=== PATIENT | male | born 1940 | race Caucasian/White ===

== ENCOUNTER 2017-02-16 08:46 | Day surgery (SDC) | payer MEDICARE ==
--- NOTE | 2017-02-14 17:59 | HP ---
PROCEDURE DATE: 02/16/17 HISTORY OF PRESENT ILLNESS: The patient is a 76 y/o with upper esophagus swallowing problems, history of throat cancer in the past. Had some radiation therapy 5 years ago. Saw ENT surgeon, Dr. Mckeon, who thought was negative for any obvious cancer recurrence, but given his dysphagia of upper esophagus, he is interested in upper endoscopy, possible dilatation pending operative findings. PAST MEDICAL HISTORY: Diabetes and some reflux. 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 CURRENT MEDICATIONS: Include omeprazole, finasteride, and Tamsulosin. ALLERGIES: SENSITIVE TO MORPHINE. FAMILY HISTORY: Negative with regards to this. SOCIAL HISTORY: No smoking or alcohol abuse. REVIEW OF SYSTEMS: 12 systems reviewed. No chest pain or palpitations. Other systems negative or noncontributory other than above and per admission assessment. PHYSICAL EXAMINATION: GENERAL: No acute distress. HEENT: Sclerae nonicteric. NECK: No JVD. CHEST: Equal excursion. Nonlabored breathing. CVS: Regular rate and rhythm. ABDOMEN: Soft, nontender, nondistended. EXTREMITIES: No significant edema. NEURO: Alert, moving extremities symmetrically. No gross motor deficits noted. It should be noted that patient had had a feeding tube by Dr. Morgan in the past. Apparently, had a perforation that Dr. Clark repaired in the past. IMPRESSION: DYSPHAGIA UPPER ESOPHAGUS. NEEDS EGD, POSSIBLE BIOPSY, POSSIBLE DILATATION PENDING OPERATIVE FINDINGS. Risks and benefits explained in detail, but not limited to, bleeding; infection; small risk of bowel injury or perforation possibly requiring open procedure; small risk of missed or nondiagnosis or incomplete exam possibly requiring barium swallow or other studies or procedures; possible risk of perforation possibly requiring open procedure; ongoing morbidity and mortality; possible referral to tertiary center. He understands and agrees to the planned procedure. Will proceed with EGD, possible biopsy, possible dilatation as an outpatient.
[~2017-02-16 08:46] MED LIST: DIPRIVAN 200 MG/20 ML IV ONE
[2017-02-16] MEDS ORDERED: Lactated Ringers 1,000 ML IV SCH (09:00)
[2017-02-16] MEDS ORDERED: Lactated Ringers 1,000 ML IV ONE ×2 (09:11→11:17)
[2017-02-16 12:24] VITALS: O2SAT 98
[2017-02-16 12:25] VITALS: BP 142/78; PULSE 50
--- NOTE | 2017-02-16 15:25 | OP ---
SURGERY DATE: 02/16/17 SURGERY TIME: 1040 PREOPERATIVE DIAGNOSIS: 1. HISTORY OF THROAT CANCER. 2. HISTORY OF DYSPHAGIA. POSTOPERATIVE DIAGNOSIS: 1. PROXIMAL ESOPHAGEAL NARROWING OR STRICTURE. 2. MILD GASTRITIS. 3. SMALL GASTRIC POLYPS VS FUNDAL GLAND POLYPS, PATH PENDING. 4. DISTAL ESOPHAGITIS, PATH PENDING FOR EVALUATION FOR OCLIN'S ESOPHAGUS. 5. SMALL HIATAL HERNIA. PROCEDURE: 1. Esophagogastroduodenoscopy with cold biopsy of the antrum to evaluate for Helicobacter pylori. 2. Cold biopsy gastric polyps. 3. Cold biopsy distal esophagus to evaluate for Colin's. 4. Esophageal balloon dilatation proximal esophageal narrowing (size 18 balloon dilator). SURGEON: Dr. Dioni Baldwin. ANESTHESIA: MAC. ESTIMATED BLOOD LOSS: Minimal. INDICATIONS: As noted above. Risks and benefits explained in detail, but not limited to. Consent was obtained. DESCRIPTION OF PROCEDURE AND FINDINGS: The patient was taken to the OR. MAC anesthesia was introduced. After official time-out, no disagreement in planned procedure. Bite block positioned. Video gastroscope passed in the oropharynx. There was a narrowed area in proximal esophagus, but the scope was able to be passed past this area. The distal esophagus was noted to have a short segment of Colin's appearing with some myelins of salmon-pink tissue. The gastroesophageal junction was about 39 cm. The scope passed into the stomach. He had a small hiatal hernia. Had some small gastric or fundal gland polyps. Cold biopsy was taken. There were no signs of any obvious other masses, ulcers, or any other mucosal lesions. He did have some mild gastritis. Cold biopsy was taken in the antrum to evaluate for Helicobacter pylori. The scope was passed in the duodenum to the junction of the 2nd and 3rd portion of the duodenum. The duodenum and duodenal bulb were grossly unremarkable. The scope was then pulled back. The biopsy site in the antrum and the gastric polyps had good hemostasis. On retroflex, he had a small hiatal hernia. The scope was straightened. The gastroesophageal junction was noted to be about 39 cm. There was a short segment, 2 cm or so, of distal gastroesophagitis vs Colin's with some myelins of salmon-pink material. Cold biopsy was taken in 4 quadrants around this a cm or so apart for path evaluation. No signs of any obvious masses. Scope pulled to the proximal esophagus. Had a definite esophageal narrowing or stricture. This was where he was having his symptoms. It was felt this would benefit from dilatation. There was no gross mass in this area. Scope was passed back down in the stomach. Balloon catheter carefully inserted in the stomach and then pulled back to the proximal esophageal narrowing. It was then inflated and dilated over 3 stages, the initial stage for 30-45 seconds, the 2nd stage 45 seconds, the final stage size 18 balloon dilator for 2 minutes. The balloon was released and removed. Balloon catheter removed. The scope was much more easily passed through this narrowed area. There was minimal abrasion. No signs of any full thickness issues or injury secondary to dilatation. The scope passed back down in the stomach. Slowly, carefully withdrawn. Good hemostasis was noted. The patient tolerated the procedure well. There were no immediate complications. Findings discussed with the family out in the waiting area.
== END 2017-02-16 12:25 | disposition home or self-care (01) ==
LOC: SDC 08:46
PROVIDERS: ATTEND Surgery
PROC: 0D718ZZ Dilation of Upper Esophagus, Via Natural or Artificial Opening Endoscopic (ICD-10-PCS; principal; 2017-02-16)
PROC: 0DB78ZX Excision of Stomach, Pylorus, Via Natural or Artificial Opening Endoscopic, Diagnostic (ICD-10-PCS; 2017-02-16)
PROC: 0DB38ZX Excision of Lower Esophagus, Via Natural or Artificial Opening Endoscopic, Diagnostic (ICD-10-PCS; 2017-02-16)
PROC: 0DB68ZX Excision of Stomach, Via Natural or Artificial Opening Endoscopic, Diagnostic (ICD-10-PCS; 2017-02-16)
DX: K22.2 Esophageal obstruction (principal); R13.10 Dysphagia, unspecified; K29.70 Gastritis, unspecified, without bleeding; K20.9 Esophagitis, unspecified; K44.9 Diaphragmatic hernia without obstruction or gangrene; E11.9 Type 2 diabetes mellitus without complications; K21.9 Gastro-esophageal reflux disease without esophagitis; Z79.899 Other long term (current) drug therapy
CPT/HCPCS: 82962; 87081; 43249; 43239; C1726; 00740; 36415; 88305; 99100; J2704

== ENCOUNTER 2018-01-18 10:31 | Day surgery (SDC) | payer MEDICARE ==
--- NOTE | 2018-01-18 09:42 | HP ---
PROCEDURE DATE: 01/18/18 HISTORY OF PRESENT ILLNESS: The patient is a 77 y/o with problems with swallowing. Is in need of upper endoscopy, possible biopsy, possible dilatation. PAST MEDICAL HISTORY: Has some chronic obstructive pulmonary disease. Has got some diabetes. Had history of throat cancer in the past and has had some hypothyroidism. Had some prostate issues in the past. CURRENT MEDICATIONS: Omeprazole, thyroid pill, and prostate pill. ALLERGIES: NKDA. PAST SURGICAL HISTORY: Denied prior abdominal surgery. FAMILY HISTORY: Negative with regards to this problem. SOCIAL HISTORY: Smoker, 2 packs per day. Denies alcohol abuse. REVIEW OF SYSTEMS: 12 systems reviewed per admission questionnaire pertinent for as noted above. PHYSICAL EXAMINATION: GENERAL: No acute distress. HEENT: Sclerae nonicteric. NECK: No JVD. CHEST: Equal excursion. Nonlabored breathing. CVS: Regular rate and rhythm. ABDOMEN: Soft. No peritoneal signs. EXTREMITIES: No significant edema. NEURO: Alert, moving extremities symmetrically. No gross motor deficits noted. IMPRESSION: 1. DYSPHAGIA. Needs upper endoscopy, possible biopsy, possible dilatation. Risks and benefits explained in detail, but not limited to, bleeding; infection; risk of bowel injury or perforation possibly requiring other procedure or open procedure; general risks of anesthesia, deep vein thrombosis, pulmonary embolism, or pneumonia; risk of aspiration; possibility if dilatation performed if it improved his situation, might need to be repeated down the road in the future. He also understands the possibility that it could be more of a neurologic or functional problem rather than an actual mechanical narrowing and dilatation may or may not help or may not be indicated. He understands risk of perforation, risk of aspiration, but not limited to. Will proceed with EGD with possible biopsy, possible dilatation as an outpatient.
[2018-01-18] MEDS ORDERED: Ketamine HCl 50 MG/ML IJ ONE (10:32)
[2018-01-18] MEDS ORDERED: DIPRIVAN 200 MG/20 ML IV ONE (10:32)
[2018-01-18] MEDS ORDERED: Lactated Ringers 1,000 ML IV SCH (11:00)
[2018-01-18 13:46] VITALS: O2SAT 98
[2018-01-18 14:32] VITALS: BP 161/90; PULSE 56
--- NOTE | 2018-01-19 11:03 | OP ---
SURGERY DATE: 01/18/18 SURGERY TIME: 1225 PREOPERATIVE DIAGNOSIS: 1. DYSPHAGIA. 2. HISTORY OF THROAT CANCER AND RADIATION. 3. HISTORY OF COLIN'S ESOPHAGUS WELL. POSTOPERATIVE DIAGNOSIS: 1. MINIMAL TO MILD GASTRITIS. 2. SMALL BENIGN-APPEARING GASTRIC POLYPS. 3. COLIN'S ESOPHAGUS. 4. PROXIMAL ESOPHAGEAL STRICTURE AND NARROWING. PROCEDURE: 1. Esophagogastroduodenoscopy with cold biopsy of the antrum to evaluate for Helicobacter pylori. 2. Cold biopsy polypectomy proximal gastric polyp near gastroesophageal junction. 3. Cold biopsy polypectomy removal of small polyp vs fundal gland polyp mid body of stomach. 4. Multiple cold biopsies circumferentially of short segment of Colin's esophagus. 5. Esophageal balloon dilatation, size 20 balloon dilator, proximal esophageal stricture. SURGEON: Dr. Dioni Baldwin. ANESTHESIA: MAC. ESTIMATED BLOOD LOSS: Minimal. INDICATIONS: As noted above. Risks and benefits explained in detail, but not limited to. Consent obtained. DESCRIPTION OF PROCEDURE AND FINDINGS: The patient was taken to the endoscopy room. MAC anesthesia introduced. After official time-out, no disagreement in planned procedure. Bite block positioned. Video gastroscope passed down the oropharynx. He definitely had a proximal esophageal stricture. The scope was able to be passed through here. This is where he had his previous treatments for previous cancer. The scope was able to be passed down into the stomach through the patent pylorus to the junction of the 2nd and 3rd portion of the duodenum. Duodenum and duodenal bulb were grossly unremarkable. In the stomach, he had a few little patchy areas of some minimal to mild gastritis. Cold biopsy was taken to evaluate for Helicobacter pylori. Good hemostasis was noted. On retroflex, he had a small polyp near the gastroesophageal junction. Cold biopsy was taken. Was removed with cold biopsy polypectomy. Good hemostasis noted. Otherwise, he had multiple fundal gland-appearing polyps in the mid body of the stomach. Cold biopsy polypectomy was accomplished for pathology sampling. There were no signs of any large polyps or masses. No signs of any ulcers or any other mucosal lesions other than the small fundal gland-appearing polyps. Scope pulled back in the gastroesophageal junction. Noted to be at about 40 cm. There was a short segment of a cm and a half to 2 cm of what appeared to be salmon pink mucosa consistent with his history of Colin's. Multiple cold biopsies in 4 quadrants were taken a cm apart up through this area. Good hemostasis was noted. Otherwise, the scope pulled back up in the proximal esophageal narrowing. Appeared smooth. There did not appear to be any obvious mass, but definitely had a narrowed strictured area. This is where he was having symptoms. It was felt this would benefit from dilatation. Therefore, the scope was passed back down into the stomach. Size 20 balloon catheter carefully inserted, passed down into the stomach, and then carefully pulled back up to the narrow proximal esophagus. It was gradually inflated at first stage I for about 40-45 seconds. The patient tried to swallow then and given more sedation and relax. The balloon then carefully moved up to stage II for 45 seconds and then final stage III size 20 balloon dilator for 2 minutes. The balloon was then decompressed and the balloon catheter withdrawn. The scope much more easily passed through this area now. There was minimal abrasion from the balloon dilatation, but there did not appear to be any full thickness issues. The scope passed into the stomach which was decompressed and pulled through. The biopsy sites appeared to have good hemostasis and again, the dilated segment appeared to be more patent at this point and there did not appear to be any evidence of any full thickness issue secondary to dilatation. The scope was withdrawn. The patient tolerated the procedure well. There were no immediate complications. Findings discussed with the family out in the waiting area. Will see him back in the office next week.
== END 2018-01-18 14:10 | disposition home or self-care (01) ==
LOC: SDC 10:31
PROVIDERS: ATTEND Surgery
DX: K29.70 Gastritis, unspecified, without bleeding (principal); K31.7 Polyp of stomach and duodenum; K22.70 Barrett's esophagus without dysplasia; Z85.818 Personal history of malignant neoplasm of other sites of lip, oral cavity, and pharynx; K22.2 Esophageal obstruction; J44.9 Chronic obstructive pulmonary disease, unspecified; E11.9 Type 2 diabetes mellitus without complications; E03.9 Hypothyroidism, unspecified; Z79.899 Other long term (current) drug therapy; Z72.0 Tobacco use
CPT/HCPCS: 82962; 87081; 99100; C1726; J2704

== ENCOUNTER 2019-01-31 09:03 | Day surgery (SDC) | payer MEDICARE ==
--- NOTE | 2019-01-31 09:00 | HP ---
DATE OF SURGERY: 01/31/2019 HISTORY OF PRESENT ILLNESS: The patient is a 78 year-old who has had problem swallowing for a while. Upper esophagus feels like a shelf, solids get stuck more now and is recurrent. He needs upper endoscopy possible biopsy, possibly dilatation. He did have upper endoscopy and improved over a year ago with dilatation. 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 PAST MEDICAL HISTORY: He had Pedroza's esophagus, history of throat cancer and radiation treatment in the past. Chronic obstructive pulmonary disease, hypothyroidism. Prostate issues in the past. PAST SURGICAL HISTORY: Endoscopy in the past. MEDICATIONS: Omeprazole, glipizide, levothyroxine, Tamsulosin, finasteride, polyethylene glycol as well as some nasal spray. ALLERGIES: SENSITIVE TO MORPHINE. FAMILY HISTORY: Negative in regards to this problem. SOCIAL HISTORY: History of smoking, denies alcohol abuse. REVIEW OF SYSTEMS: Fourteen systems reviewed per admission assessment. No chest pain or palpitations other systems negative or noncontributory as above and per preadmission questionnaire. PHYSICAL EXAMINATION: GENERAL: No acute distress. HEENT: Sclerae nonicteric. NECK: No JVD. CHEST: Equal excursion, nonlabored breathing. CVS: Regular rate and rhythm. ABDOMEN: Soft. EXTREMITIES: No significant edema. NEURO: Alert, moving extremities symmetrically. RECTAL: Deferred timed to endoscopy exam. IMPRESSION: Dysphagia upper esophagus, prior history of some throat cancer with radiation. He had prior dilatation in the past. He is having more symptoms now and he is in need of EGD, possible biopsy, possible dilatation pending operative findings particularly given his history of Pedroza's and history of throat cancer in the past. He understands and will proceed with EGD, possible biopsy, possible dilatation as an outpatient. General risk of bleeding or infection, risk of bowel injury or perforation possibly requiring open procedure, risk of missed or nondiagnosis or incomplete exam possibly requiring barium swallow, other studies or procedures. She understands and agrees to the planned procedure and will proceed with EGD with possible biopsy, possible dilatation as an outpatient.
[~2019-01-31 09:03] MED LIST changes: -DIPRIVAN 200 MG/20 ML IV ONE; +Lactated Ringers 1,000 ML IV SCH
[2019-01-31] MEDS ORDERED: Lactated Ringers 1,000 ML IV ONE ×2 (09:09→11:31)
[2019-01-31] MEDS ORDERED: Ketamine HCl 50 MG/ML ONE (11:23)
[2019-01-31 12:30] VITALS: BP 161/93; PULSE 56; O2SAT 97
--- NOTE | 2019-01-31 13:40 | OP ---
SURGERY DATE/TIME: 01/31/2019 1131 PREOPERATIVE DIAGNOSES: 1) History of Pedroza's esophagus. 2) History of proximal esophageal narrowing, stricture and dysphagia. POSTOPERATIVE DIAGNOSES: 1) Minimal gastritis. 2) Pedroza's esophagus. 3) Gastric polyp. 4) Proximal esophageal narrowing and stricture. PROCEDURES: 1) EGD with cold biopsy to the antrum to evaluate for Helicobacter pylori. 2) Cold biopsy gastric polyp. Multiple cold biopsies four quadrants Pedroza's esophagus distal esophagus. 3) Esophageal balloon dilatation proximal esophagus, esophageal stricture (size 20 balloon dilator). SURGEON: Dr. Dioni Baldwin. ANESTHESIA: MAC. ESTIMATED BLOOD LOSS: Minimal. INDICATIONS: As noted above. Risks and benefits explained in detail and not limited to and consent obtained. DESCRIPTION OF PROCEDURE AND FINDINGS: The patient is taken to the endoscopy room. MAC anesthesia introduced. After official time out and no disagreement with planned procedure, a bite block positioned. Video gastroscope passed down the oropharynx. He had proximal esophageal narrowing and stricture. As it is causing him symptoms it was felt this would benefit from dilatation. There was no obvious mass there to biopsy. A narrowed area in need of dilatation. The scope passed back down through the area to bottom part of the esophagus and had Pedroza's esophagus through the patent pylorus to the junction of the second and third portion of the duodenum. Duodenum and duodenal bulb grossly unremarkable. Back in the stomach he had some minimal gastritis. Cold biopsy taken of the antrum to evaluate for Helicobacter pylori. He did have some gastric polyps that looked like benign fundal gland polyps. Cold biopsy taken for evaluation. Good hemostasis noted. On retroflex the gastroesophageal junction was fairly snug against the scope. There were no signs of a large hiatal hernia. Scope straightened and pulled to gastroesophageal junction about 43 cm. He did have 2 or 3 cm segment of Pedroza's esophagus. Cold biopsy taken four quadrants about 1 cm apart at this area. There was no obvious mass, this appeared to be Pedroza's esophagus, path pending. Good hemostasis noted. Otherwise scope pulled back. Again he had proximal esophageal narrowing but no evidence of any mass to warrant biopsy at this point. It was felt this would benefit from dilating. Scope passed back down in the stomach. A 20 balloon catheter carefully inserted and pulled back up to the narrowed area proximal esophagus and gradually inflated first stage 45 seconds, second stage 45 seconds and final stage size 20 balloon dilator for 2 minutes. The balloon was then decompressed and removed. The scope passed back down into the stomach and gradually withdrawn. There was minimal abrasion from dilatation but much more widely patent proximal esophagus. The patient tolerated the procedure well. There were no immediate complications. There was no family available to discuss the findings with at this time.
== END 2019-01-31 13:00 | disposition home or self-care (01) ==
LOC: SDC 09:03
PROVIDERS: ATTEND Surgery
DX: K22.70 Barrett's esophagus without dysplasia (principal); K22.2 Esophageal obstruction; K31.7 Polyp of stomach and duodenum; K29.70 Gastritis, unspecified, without bleeding; R13.10 Dysphagia, unspecified; Z85.810 Personal history of malignant neoplasm of tongue; E11.9 Type 2 diabetes mellitus without complications; E03.9 Hypothyroidism, unspecified; J44.9 Chronic obstructive pulmonary disease, unspecified; I10 Essential (primary) hypertension; Z79.899 Other long term (current) drug therapy
CPT/HCPCS: 82962; 87081; 88305; 99100; C1726

== ENCOUNTER 2019-10-03 11:38 | Emergency (ER) | payer MEDICARE ==
[2019-10-03] MEDS ORDERED: Nitrostat 0.4 MG (ED) SL ONE ×2 (11:41→11:56)
[2019-10-03] MEDS ORDERED: BABY ASPIRIN 81 MG CHEW PO ONE (11:41)
[2019-10-03] MEDS ORDERED: Heparin 5000 UNITS/0.5 ML (HIGH RISK MED) IV ONE (11:41)
--- NOTE | 2019-10-03 11:41 | ERPHSYRPT ---
- History of Present Illness Time Seen by Provider: 10/03/19 11:40 Historian: patient, family Exam Limitations: no limitations Physician History: Is an 79-year-old gentleman who is diabetic and has history of hypothyroidism on levothyroxine, gastroesophageal reflux disease on omeprazole and prostate issues on Flomax. Patient has no diagnosed cardiac history. However, the patient states he had centralized sharp stabbing substernal chest pain without radiation. Onset was approximately 1 hour prior to evaluation here in the emergency room. Patient was not exerting himself but was up and walking around. Patient's spouse states that he has had 2 other episodes in the last 2 weeks. Patient denies having a accounts payable clerk. Patient denies shortness of breath denies abdominal pain. Patient arrives to the emergency room in moderate distress and was found to have elevation in leads II, III and aVF on EKG. Timing/Duration: other (3 episodes in the last 2 weeks. Most recent onset 1 hour prior to arrival.) Activities at Onset: activity Quality: sharpness, stabbing Location: substernal, central Chest Pain Radiation: no radiation Severity of Pain-Max: moderate Severity of Pain-Current: moderate Associated Symptoms: diaphoresis Prior Chest Pain/Cardiac Workup: no prior cardiac workup Nitro Today/Relief: no nitro taken today Aspirin Treatment Today: no aspirin today Allergies/Adverse Reactions: morphine Allergy (Severe, Verified 10/03/19 11:48) Headache Home Medications: Omeprazole 20 mg PO DAILY 09/06/12 [History] Levothyroxine Sodium [Synthroid] 25 mcg PO DAILY 02/05/17 [History] Tamsulosin HCl 0.4 mg [Flomax 0.4 MG] 0.4 mg PO DAILY 02/05/17 [History] Glipizide 5 mg [Glucotrol 5 MG] 5 mg PO DAILY 01/18/18 [History] Hx Tetanus, Diphtheria Vaccination/Date Given: Yes (UNKNOWN) Hx Influenza Vaccination/Date Given: Yes Hx Pneumococcal Vaccination/Date Given: Yes - Review of Systems Constitutional: No Symptoms Eyes: No Symptoms Ears, Nose, & Throat: No Symptoms Respiratory: No Symptoms Cardiac: Chest Pain Abdominal/Gastrointestinal: No Symptoms Genitourinary Symptoms: No Symptoms Musculoskeletal: No Symptoms Skin: No Symptoms Neurological: No Symptoms Psychological: No Symptoms Endocrine: No Symptoms Hematologic/Lymphatic: No Symptoms Immunological/Allergic: No Symptoms All Other Systems: Reviewed and Negative - Past Medical History Pertinent Past Medical History: Yes Neurological History: No Pertinent History ENT History: Cataracts Cardiac History: No Pertinent History Respiratory History: Bronchitis, Pneumonia Endocrine Medical History: Diabetes Type II Musculoskeletal History: No Pertinent History GI Medical History: Diverticulitis, Diverticulosis, Gallbladder Disease, Hernia , Other History: Dialysis Psycho-Social History: Anxiety, Depression Male Reproductive Disorders: Prostate Problems Other Medical History: HX COLON RESECTION. HAD 3-4 WEEKS DIALYSIS. radiation for tongue cancer - Past Surgical History Past Surgical History: Yes Neuro Surgical History: No Pertinent History Cardiac: No Pertinent History Respiratory: No Pertinent History Gastrointestinal: Bowel Surgery, Cholecystectomy, Colon Resection Genitourinary: No Pertinent History Musculoskeletal: No Pertinent History Male Surgical History: Prostate Surgery Other Surgical History: HX C-DIFF. HAD FEEDING TUBE AND GOT SERIOUS INFECTION AND HAD SURGERY AND REPAIRS TO STOMACH-HAD A WOUND VAC X 6 WEEKS-FEEDING TUBE REMOVED. port placed and removed - Social History Smoking Status: Former smoker How long have you smoked: 15 YEARS Exposure to second hand smoke: No Drug Use: none Patient Lives Alone: No - Nursing Vital Signs Nursing Vital Signs: Initial Vital Signs Temperature 97.2 F 10/03/19 11:38 Pulse Rate 65 10/03/19 11:38 Respiratory Rate 17 10/03/19 11:38 Blood Pressure 147/89 10/03/19 11:38 O2 Sat by Pulse Oximetry 99 10/03/19 11:38 Pain Scale Pain Intensity 10 - Physical Exam General Appearance: moderate distress, alert, anxiety Eye Exam: PERRL/EOMI, eyes nml inspection Ears, Nose, Throat Exam: normal ENT inspection, moist mucous membranes Neck Exam: normal inspection, non-tender, supple, full range of motion Respiratory Exam: normal breath sounds, chest tenderness, lungs clear, airway intact, No respiratory distress Cardiovascular Exam: regular rate/rhythm, normal heart sounds, normal peripheral pulses Gastrointestinal/Abdomen Exam: soft, normal bowel sounds, No tenderness Rectal Exam: not done Back Exam: normal inspection, normal range of motion, No CVA tenderness, No vertebral tenderness Extremity Exam: normal inspection, normal range of motion, pelvis stable Neurologic Exam: alert, oriented x 3, cooperative, panama hat smearer II-XII nml as tested, normal mood/affect, nml cerebellar function, nml station & gait Skin Exam: diaphoresis, pale Lymphatic Exam: No adenopathy SpO2 Interpretation: normal O2 Delivery: Room Air - Course Nursing assessment & vital signs reviewed: Yes EKG Interpreted by Me: RATE (58), Sinus Rhythm, NORMAL AXIS, NORMAL QRS, ST Elev (Leads II, III and aVF) Ordered Tests: Active Orders 24 hr Category Date Time Status Felt Carbonizer STAT Care 10/03/19 11:43 Active EKG-ER Only STAT Care 10/03/19 11:41 Active IV Insertion STAT Care 10/03/19 11:41 Active Pulse Oximetry (ED) STAT Care 10/03/19 11:41 Active CBC W DIFF Stat Lab 10/03/19 11:41 Ordered CMP Stat Lab 10/03/19 11:41 Ordered NT PRO BNP Stat Lab 10/03/19 11:41 Ordered PROTIME WITH INR Stat Lab 10/03/19 11:41 Ordered TROPONIN Q3H Lab 10/03/19 11:45 Ordered TROPONIN Q3H Lab 10/03/19 14:45 Ordered TROPONIN Q3H Lab 10/03/19 17:45 Ordered TROPONIN Q3H Lab 10/03/19 20:45 Ordered TROPONIN Q3H Lab 10/03/19 23:45 Ordered Medication Summary Generic Name Dose Route Start Last Admin Trade Name Freq PRN Reason Stop Dose Admin Sodium Chloride 1,000 mls @ 50 mls/hr 10/03/19 11:45 10/03/19 11:56 Sodium Chloride 0.9% 1000 Ml IV 11/02/19 11:44 50 mls/hr .Q20H ENID Administration Discontinued Medications Generic Name Dose Route Start Last Admin Trade Name Freq PRN Reason Stop Dose Admin Aspirin 324 mg 10/03/19 11:41 10/03/19 11:55 Baby Aspirin 81 Mg Chew PO 10/03/19 11:42 324 mg STAT ONE Administration Heparin Sodium (Beef Lung) 5,000 unit 10/03/19 11:41 10/03/19 11:55 Heparin 5000 Units/0.5 Ml (High Risk Med) IV 10/03/19 11:42 5,000 unit STAT ONE Administration Sodium Chloride Confirm 10/03/19 11:46 Sodium Chloride 0.9% 1000 Ml Administered 10/03/19 11:47 Dose 1,000 mls @ ud .ROUTE .STK-MED ONE Nitroglycerin 0.4 mg 10/03/19 11:41 10/03/19 11:55 Nitrostat 0.4 Mg (Ed) SL 10/03/19 11:42 0.4 mg STAT ONE Administration - Progress Progress: unchanged Air Movement: good Progress Note: 10/03/19 12:07 Upon immediate evaluation of the patient's EKG, it was apparent there is a STEMI with elevation in leads.. 2 3 aVF. Per our protocol, I contacted [facility] emergency department through the one call service. I spoke with Dr. De Leon, the emergency department physician. Dr. De Leon accepts the patient in transfer. The ambulance service was contacted immediately. Blood Culture(s) Obtained: No Antibiotics given: No - Departure Departure Disposition: Transfer Clinical Impression: STEMI (ST elevation myocardial infarction) Condition: Stable Critical Care Time: Yes Critical Care Time(excluding separately billable procedures): Critical 30-74 mins Referrals: MAXIMILIAN AECVEDO MD [Primary Care Provider] -
[2019-10-03] MEDS ORDERED: Sodium Chloride 0.9% 1000 ML 1,000 ML IV SCH (11:45)
[2019-10-03] MEDS ORDERED: Sodium Chloride 0.9% 1000 ML 1,000 ML ONE (11:46)
[2019-10-03 11:47] VITALS: BP 147/89; PULSE 64
[2019-10-03 11:58] VITALS: O2SAT 98
[2019-10-03 12:14] LABS: Eosinophil % 3.4 % (0.00-5.0); Hematocrit 40.4 % (42-50); Hemoglobin 13.1 gm/dl (12.5-18.0); Lymphocytes % 32.4 % (24.0-44.0); Mean Cell Volume 95.1 fl (78-100); Mean Corpuscular Hemoglobin 30.8 pg (26-32); Mean Corpuscular Hgb Concent. 32.4 g/dl (32-36); Mean Platelet Volume 9.5 fl (7.5-11.0); Monocytes % 11.1 % (0.0-12.0); Neutrophil % 52.4 % (36.0-66.0); Platelet Count 242 K/mm3 (150-450); Red Blood Count 4.25 M/mm3 (4.1-5.6); White Blood Count 10.3 K/mm3 (4.0-10.5)
[2019-10-03 12:15] LABS: Absolute Neutrophil Ct (ANC) 5.37 (1.4-6.9); BASOPHIL % 0.7 % (0.0-0.4); Basophil (Absolute #) 0.07 (0-0.4); Eosinophil (Absolute #) 0.35 (0-0.5); Lymphocyte (Absolute #) 3.32 (1.0-4.6); Monocyte (Absolute #) 1.14 (0.0-1.3)
[2019-10-03 12:29] LABS: ALBUMIN 4.1 g/dL (3.5-5.0); ALKALINE PHOSPHATASE 71 U/L (38-126); ANION GAP 13.3 MEQ/L (5-15); BLOOD UREA NITROGEN 13 mg/dL (9-20); CHLORIDE 106 mmol/L (98-107); Calcium 9.1 mg/dL (8.4-10.2); Carbon Dioxide 27 mmol/L (22-30); Creatinine 1 1.22 mg/dL (0.66-1.25); Glucose 289 mg/dL (74-106); NT PRO BNP 163 pg/mL (0-1800); Potassium 3.5 mmol/L (3.5-5.1); SGOT/AST 27 U/L (17-59); SGPT/ALT 17 U/L (0-50); SODIUM 142 mmol/L (137-145); Total Protein 7.2 g/dL (6.3-8.2)
[2019-10-03 12:30] LABS: PROTIME 12.9 SECONDS (8.83-12.87)
[2019-10-03 12:31] LABS: INR 1.14 (0.8-3.0)
== END 2019-10-03 11:58 | disposition short-term general hospital (02) ==
LOC: ED 11:38
DX: I21.3 ST elevation (STEMI) myocardial infarction of unspecified site (principal); E11.9 Type 2 diabetes mellitus without complications; E03.9 Hypothyroidism, unspecified; Z79.899 Other long term (current) drug therapy; K21.9 Gastro-esophageal reflux disease without esophagitis; R07.89 Other chest pain
CPT/HCPCS: 36415; 80053; 83880; 84484; 85025; 85610; 93005; 93041; 94760; 96374; 99285; 99291; J1644; A9270-GY